=== PATIENT | female | born 1955 | race Caucasian/White ===

== ENCOUNTER 2025-05-18 17:25 | Emergency (ER) | payer MEDICARE, BC, SELFPAY ==
--- OUTSIDE RECORDS SUMMARY | 2025-05-18 17:27 | XMS_ITS | Clinical Summary ---
Author Organization [place] Address [address] [place] [address] Care Team Providers Care Asphalt Dauber Name Role Phone Nilay Ceron MD Unavailable [phone] Allergies No known active allergies Medications Multiple Vitamin (MULTIVITAMINS PO) Take by mouth. Active Melatonin 10 MG TABS tablet Take 10 mg by mouth nightly as needed for sleep Active ibuprofen (ADVIL/MOTRIN) 100 MG tablet Take 100 mg by mouth every 4 hours as needed Active valACYclovir (VALTREX) 1000 mg tabletIndications :Herpes zoster without complication Take 1 tablet (1,000 mg) by mouth 3 times daily for 3 days 9 tablet 0 Active Zinc Sulfate (ZINC 15 PO) Active Potassium (POTASSIMIN PO) Acti ve acetaminophen (TYLENOL) 325 MG tablet Take 325-650 mg by mouth every 6 hours as needed for mild pain Active alendronate (FOSAMAX) 70 MG tabletIndications :Age-related osteoporosis without current pathological fracture Take 1 tablet (70 mg) by mouth every 7 days Take 60 minutes before am meal with 8 oz. water. Remain upright for 30 minutes.Call clinic to schedule follow up appointment. 12 tablet 2 Active Active Problems Problem Noted Date Diagnosed Date Overweight (BMI 25.0-29.9) 07/22/2012 CARDIOVASCULAR SCREENING; LDL GOAL LESS THAN 160 06/05/2010 Resolved Problems Problem Noted Date Diagnosed Date Resolved Date Advanced directives, counseling/discussion 07/26/2011 03/12/2018 Overview (03/12/2018): Patient states has Advance Directive and will bring in a copy to clinic. 07/26/2011 Pain in joint, shoulder region 02/09/2009 05/04/2009 Adhesive capsulitis of shoulder 02/09/2009 05/04/2009 Abnormal Uterine Bleeding 07/24/2006 Immunizations Immunization Administration Dates Next Due HEPA 10/22/2006,05/02/2006 HepB 03/07/2007,10/22/2006,05/02/2006 Hepatitis A (VAQTA)(ADULT 19+) 10/22/2006,2005 Hepatitis B, Adult (Energix-B/Recombivax HB) 03/07/2007,10/22/2006,05/02/2006 Influenza (High Dose) Trival ent,PF (Fluzone) 07/02/2019 Influenza (IIV3) PF 07/22/2012,09/04/2011 Influenza Vaccine 18-64 (Flublok) 07/17/2018 Influenza Vaccine 65+ (Fluzone HD) 07/16/2020 Influenza Vaccine >6 months,quad, PF ,07/11/2016,07/08/2015,2013,06/17/2013 Pneumo Conj 13-V (2010&after) 07/02/2019 Pneumococcal 23 valent 07/16/2020 TD,PF 7+ (Tenivac) 10/04/2000 TDAP (Adacel,Boostrix) 07/16/2020 TDAP Vaccine (Adacel) 07/27/2010 Typhoid IM 05/02/2006 Zoster recombinant adjuvante d (Shingrix) 01/28/2019,07/17/2018 Zoster vaccine, live 09/02/2014,07/22/2012 Family History Medical History Relation Comments Cerebrovascular Disease Brother 3 Twin bro ther; 65 Cerebrovascular Disease Father of stroke at 93 Eye Disorder Father Glaucoma Hypertension Father at age 85; contr olled by medicine Prostate Cancer Father at age 80; surge ry; no re-occurance Thyroid Disease Sister 4 Relation Status Comments Brother 1 Alive Glucoma Brother 2 Alive twin Brother 3 Father (Age 94) stroke Mother (Age 80) smoking, lung problems Sister 1 Alive Sister 2 Alive Sister 3 Alive Sister 4 Son Alive Social History Tobacco Use Types Packs/Day Years Used Date Smoking Tobacco: Never Smokeless Tobacco: Never Tobacco Cessation:Counseling Given: Yes Alcohol Use Standard Drinks/Week Comments No 0 (1 standard drink = 0.6 oz pur e alcohol) PHQ-2 Answer Date Recorded PHQ-2 Score 0 08/31/2020 Adolescent Education Answer Date Record ed Getting School Help Needed Not on file 05/05 Comments No Sex and Gender Information Value Date Recorded Sex Assigned at Not on file Legal Sex Female 4:40 AM CONSTRUCTION CARPENTERS HELPER Gender Identity Not on file Sexual Orientation Not on file 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 Not on file Not on file Last Filed Vital Signs Vital Sign Reading Time Taken Comments Blood Pressure 136/77 07/16/2020 7:08 AM CONSTRUCTION CARPENTERS HELPER Pulse 44 07/16/2020 7:08 AM CONSTRUCTION CARPENTERS HELPER Temperature 36.5 C (97.7 F) 07/16/2020 7:08 AM CONSTRUCTION CARPENTERS HELPER Respiratory Rate 16 07/16/2020 7:08 AM CONSTRUCTION CARPENTERS HELPER Oxygen Saturation 97% 07/16/2020 7:08 AM CONSTRUCTION CARPENTERS HELPER Inhaled Oxygen Concentration - - Weight 68.3 kg (150 lb 9.6 oz) 07/16/2020 7:08 A M CONSTRUCTION CARPENTERS HELPER Height 152.4 cm (5') 07/16/2020 7:08 AM CONSTRUCTION CARPENTERS HELPER Body Mass Index 29.41 07/16/2020 7:08 AM CONSTRUCTION CARPENTERS HELPER Plan of Treatment Not on file Insurance [facility] MEDICARE ADVANTAGE Advance Directives For more information, please contact: [phone] Documents on File Type Date Recorded Patient Erp Programmer Expl anation Advance Directives and Living Will 03/08/2018 11:25 AM Health Care Directiv e 08/16/2016 Healthcare Agents on File Name Relationship Healthcare Agent Relationship Communication Troy Tucker Spouse Health Care Agent Sergio Moody Son First Alternate Health Care Agent Care Teams Asphalt Dauber Relationship Specialty Start Date End Date Nilay Ceron MD [address] [place] [address] [address] [place], [place] [id number] Surgery 12/26/17
--- OUTSIDE RECORDS SUMMARY | 2025-05-18 17:27 | XMS_ITS | Encounter Summary ---
Author Organization [place] Address [address] [facility] [place] [address] Care Team Providers Care Egg Breaker Name Role Phone Nilay Ceron MD Unavailable Say Tavarez PA-C Primary Care Provider [phone] Micaela Montiel MD Unavailable [phone] Say Tavarez PA-C Unavailable [phone] Donna Shankar PA-C Unavailable Donna Shankar PA-C Unavailable [phone] Say Tavarez PA-C Unavailable [phone] Encounter Details Date Type Department Care Team (Late st Contact Info) Description 11/24/2020 [facility] Medical Advice [facility] [address] [address] Micaela Montiel MD [address] [place] [address] Social History Tobacco Use Types Packs/Day Years Used Date Smoking Tobacco: Never Smokeless Tobacco: Never Alcohol Use Standard Drinks/Week Comments No 0 (1 standard drink = 0.6 oz pur e alcohol) PHQ-2 Answer Date Recorded PHQ-2 Score 0 08/31/2020 Comments No Sex and Gender Information Value Date Recorded Sex Assigned at Not on file Legal Sex Female 4:40 AM CRAB STEAMER Gender Identity Not on file Sexual Orientation Not on file 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 Not on file Not on file documented as of this encounter Plan of Treatment Not on file documented as of this encounter Visit Diagnoses Not on filedocumented in this encounter Care Teams Egg Breaker Relationship Specialty Start Date End Date Say Tavarez PA-C [address] [address] PCP - General Physician Community Relations Liaison 06/13/19 09/04/23 Nilay Ceron MD [address] [place] [address] MD Surgery 12/26/17 Micaela Montiel MD [address] [place] [phone] Assigned Endocrinology Provider 09/05/20 03/03/22 Say Tavarez PA-C [address] [address] Assigned PCP 08/15/20 01/20/22 Donna Shankar PA-C [address] [facility] [address] [place] [address] Assigned PCP 01/21/22 07/21/22 Donna Shankar PA-C [address] [facility] [address] [place] [address] Assigned PCP 09/30/22 03/09/23 Say Tavarez PA-C [address] [address] Assigned PCP 03/10/23 07/20/23 documented as of this encounter
--- OUTSIDE RECORDS SUMMARY | 2025-05-18 17:27 | XMS_ITS | Encounter Summary ---
Author Organization [place] Address [address] [facility] [place] [address] Care Team Providers Care Public Service Officer Name Role Phone Nilay Ceron MD Unavailable [phone] Say Tavarez PA-C Primary Care Provider Donna Shankar PA-C Unavailable [phone] Donna Shankar PA-C Unavailable [phone] Say Tavarez PA-C Unavailable [phone] Encounter Details Date Type Department Care Team (Late st Contact Info) Description 03/22/2022 [facility]ice [address], [address] [place] [address] Iliana Dunlap, VIVI Social History Tobacco Use Types Packs/Day Years Used Date Smoking Tobacco: Never Smokeless Tobacco: Never Alcohol Use Standard Drinks/Week Comments No 0 (1 standard drink = 0.6 oz pur e alcohol) PHQ-2 Answer Date Recorded PHQ-2 Score 0 08/31/2020 Comments No Sex and Gender Information Value Date Recorded Sex Assigned at Not on file Legal Sex Female 4:40 AM STOKER ERECTOR Gender Identity Not on file Sexual Orientation Not on file 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 Not on file Not on file documented as of this encounter Plan of Treatment Not on file documented as of this encounter Visit Diagnoses Not on filedocumented in this encounter Care Teams Public Service Officer Relationship Specialty Start Date End Date Say Tavarez PA-C [address] [facility] [address] [place] [address] PCP - General Physician Fine Unhairer 06/13/19 09/04/23 Nilay Ceron MD [address] [facility] [address] [place] [address] MD Surgery 12/26/17 Donna Shankar PA-C [facility] [employer] [address] Assigned PCP 01/21/22 07/21/22 Donna Shankar PA-C [facility] [employer] [address] [address] Assigned PCP 09/30/22 03/09/23 Say Tavarez PA-C [address] [address] Assigned PCP 03/10/23 07/20/23 documented as of this encounter
--- OUTSIDE RECORDS SUMMARY | 2025-05-18 17:27 | XMS_ITS | Encounter Summary ---
Author Organization [place] Address [address] [facility] [place] [address] Care Team Providers Care Seismograph Helper Name Role Phone Nilay Ceron MD Unavailable Say Tavarez PA-C Primary Care Provider [phone] Donna Shankar PA-C Unavailable [phone] Micaela Montiel MD Unavailable [phone] Say Tavarez PA-C Unavailable [phone] Donna Shankar PA-C Unavailable [phone] Donna Shankar PA-C Unavailable [phone] Say Tavarez PA-C Unavailable [phone] Encounter Details Date Type Department Care Team (Late st Contact Info) Description 08/12/2020 [facility] [place] Medical Advice [address] [address] Say Tavarez PA-C [address] [id number] Social History Tobacco Use Types Packs/Day Years Used Date Smoking Tobacco: Never Smokeless Tobacco: Never Alcohol Use Standard Drinks/Week Comments No 0 (1 standard drink = 0.6 oz pur e alcohol) PHQ-2 Answer Date Recorded PHQ-2 Score 0 08/14/2018 Comments No Sex and Gender Information Value Date Recorded Sex Assigned at Not on file Legal Sex Female 4:40 AM DISTRICT ADVISER Gender Identity Not on file Sexual Orientation Not on file 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 No / Unsure 08/10/2020 12:40 PM DISTRICT ADVISER documented as of this encounter Miscellaneous Notes * Telephone Encounter - Marii Valderrama RN - 08/13/2020 9:45 AM CST [facility] [employer] communication. Medical records number given to patient to retrieve DEXA scan results-images. Thanks! Marii Valderrama RN RICT ADVISER * Telephone Encounter - Marii Valderrama RN - 08/13/2020 8:43 AM CST [facility] [employer] communication. RE: DEXA results. Thanks! Marii Valderrama RN RICT ADVISER documented in this encounter Plan of Treatment Not on file documented as of this encounter Visit Diagnoses Not on filedocumented in this encounter Care Teams Seismograph Helper Relationship Specialty Start Date End Date Say Tavarez PA-C [address] [place] [address] PCP - General Physician General Manager Land Department 06/13/19 09/04/23 Nilay Ceron MD [address] [address] Surgery 12/26/17 Donna Shankar PA-C [address] [address] Assigned PCP 07/04/20 08/14/20 Micaela Montiel MD [address] [place] [phone] Assigned Endocrinology Provider 09/05/20 03/03/22 Say Tavarez PA-C [address] [address] Assigned PCP 08/15/20 01/20/22 Donna Shankar PA-C [address] [employer] [address] [address] [address] Assigned PCP 01/21/22 07/21/22 Donna Shankar PA-C [address] [employer] [address] [address] Assigned PCP 09/30/22 03/09/23 Say Tavarez PA-C [address] [address] Assigned PCP 03/10/23 07/20/23 documented as of this encounter
--- OUTSIDE RECORDS SUMMARY | 2025-05-18 17:28 | XMS_ITS | Encounter Summary ---
Author Organization [place] Address [address] [facility] [place] [address] Care Team Providers Care Mold Runner Name Role Phone Nilay Ceron MD Unavailable [phone] Say Tavarez-C Primary Care Provider [phone] Mona Sommer MD Unavailabl e Say Tavarez PA-C Unavailable [phone] Donna ShankarC Unavailable [phone] Micaela Montiel MD Unavailable [phone] Say TavarezC Unavailable [phone] Donna Shankar PA-C Unavailable [phone] Donna Shankar-C Unavailable [phone] Say Tavarez-Era Unavailable [phone] Encounter Details Date Type Department Care Team (Late st Contact Info) Description 09/02/2019 [facility] Medical Advice [address] [address] Lolis Verdugo, ABAD Social History Tobacco Use Types Packs/Day Years Used Date Smoking Tobacco: Never Smokeless Tobacco: Never Alcohol Use Standard Drinks/Week Comments No 0 (1 standard drink = 0.6 oz pur e alcohol) PHQ-2 Answer Date Recorded PHQ-2 Score 0 08/14/2018 Comments No Sex and Gender Information Value Date Recorded Sex Assigned at Not on file Legal Sex Female 4:40 AM RETREADER Gender Identity Not on file Sexual Orientation Not on file 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 Not on file Not on file documented as of this encounter Plan of Treatment Not on file documented as of this encounter Visit Diagnoses Not on filedocumented in this encounter Care Teams Mold Runner Relationship Specialty Start Date End Date Say Tavarez PA-C [address] [address] PCP - General Physician Prints And Drawings Curator 06/13/19 09/04/23 Nilay Ceron MD [address] [id number] Surgery 12/26/17 Mona Sommer MD [address] [place], [place] [id number] Assigned PCP 07/20/19 02/14/20 Say Tavarez PA-C [address] [address] Assigned PCP 02/15/20 07/03/20 Donna Shankar PA-C [address] [address] Assigned PCP 07/04/20 08/14/20 Micaela Montiel MD [address] [place] [phone] Assigned Endocrinology Provider 09/05/20 03/03/22 Say aTvarez PA-C [address] [address] Assigned PCP 08/15/20 01/20/22 Donna Shankar PA-C [facility] [address] [address] Assigned PCP 01/21/22 07/21/22 Donna Shankar PA-C [facility] [employer] [address] [address] Assigned PCP 09/30/22 03/09/23 Say Tavarez PA-C [address] [address] Assigned PCP 03/10/23 07/20/23 documented as of this encounter
--- OUTSIDE RECORDS SUMMARY | 2025-05-18 17:28 | XMS_ITS | Encounter Summary ---
Author Organization [place] Address [address] [place] [address] Care Team Providers Care Corrugator Operator Helper Name Role Phone Stalin Cortés MD Primary Care Pr ovider Unavailable Nilay Ceron MD Unavailable [phone] Stalin Cortés MD Unavailable Unavailable Mona Sommer MD Unavailabl e Stalin Cortés MD Unavailable Unavailable Mona Sommer MD Unavailabl e Stalin Cortés MD Unavailable Unavailable Say Tavarez-C Primary Care Provider [phone] Mona Sommer MD Unavailabl e Say Tavarez-C Unavailable [phone] Donna Shankar PA-C Unavailable [phone] Micaela Montiel MD Unavailable [phone] Say Tavarez-C Unavailable [phone] Donna Shankar PA-C Unavailable [phone] Donna Shankar PA-C Unavailable [phone] Say Tavarez PA-C Unavailable [phone] Reason for Visit * Reason Onset Date Comments thank you note 12/02/2018 Encounter Details Date Type Department Care Team (Late st Contact Info) Description 12/02/2018 [facility] [place] [address] [address] Stalin Cortés MD NO INFO AVAILABLE 01/03/2023 thank you note Social History Tobacco Use Types Packs/Day Years Used Date Smoking Tobacco: Never Smokeless Tobacco: Never Alcohol Use Standard Drinks/Week Comments No 0 (1 standard drink = 0.6 oz pur e alcohol) PHQ-2 Answer Date Recorded PHQ-2 Score 0 08/14/2018 Comments No Sex and Gender Information Value Date Recorded Sex Assigned at Not on file Legal Sex Female 4:40 AM INSPECTOR WATCH ASSEMBLY Gender Identity Not on file Sexual Orientation Not on file 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 Not on file Not on file documented as of this encounter Plan of Treatment Not on file documented as of this encounter Visit Diagnoses Not on filedocumented in this encounter Care Teams Corrugator Operator Helper Relationship Specialty Start Date End Date Stalin Cortés MD PCP - General Family Practice 08/14/14 06/12/19 Say Tavaerz PA-C [address] [place] [address] PCP - General Physician Office Machine Technician 06/13/19 09/04/23 Nilay Ceron MD [address] [place] [address] Surgery 12/26/17 Stalin Cortés MD NO INFO AVAILABLE 01/03/2023 Assigned PCP 07/11/15 01/29/19 Mona Sommer MD [address] [place] [address] Assigned PCP 06/23/18 02/22/19 Stalin Cortés MD NO INFO AVAILABLE 01/03/2023 Assigned PCP 02/23/19 03/01/19 Mona Sommer MD [address] [place] [address] Assigned PCP 03/02/19 03/08/19 Stalin Cortés MD NO INFO AVAILABLE 01/03/2023 Assigned PCP 03/09/19 07/19/19 Mona Sommer MD [address] [place] [address] Assigned PCP 07/20/19 02/14/20 Say Tavarez PA-C [address] [address] Assigned PCP 02/15/20 07/03/20 Donna Shankar PA-C [address] [place] [address] Assigned PCP 07/04/20 08/14/20 Micaela Montiel MD [address] [place] [phone] Assigned Endocrinology Provider 09/05/20 03/03/22 Say Tavarez PA-C [address] [address] Assigned PCP 08/15/20 01/20/22 Donna Shankar PA-C [address] [address] [address] Assigned PCP 01/21/22 07/21/22 Donna Shankar PA-C [address] [address] [address] Assigned PCP 09/30/22 03/09/23 Say Tavarez PA-C [address] [address] Assigned PCP 03/10/23 07/20/23 documented as of this encounter
--- OUTSIDE RECORDS SUMMARY | 2025-05-18 17:28 | XMS_ITS | Encounter Summary ---
Author Organization [place] Address [address] [place] [address] Care Team Providers Care Chute Builder Name Role Phone Stalin Cortés MD Primary Care Pr ovider Unavailable Nilay Ceron MD Unavailable [phone] Stalin Cortés MD Unavailable Unavailable Stalin Cortés MD Unavailable Unavailable Mona Sommer MD Unavailabl e Stalin Cortés MD Unavailable Unavailable Mona Sommer MD Unavailabl e Stalin Cortés MD Unavailable Unavailable Say Tavarez PA-C Primary Care Provider [phone] Mona Sommer MD Unavailabl e Say TavarezC Unavailable [phone] Donna Shankar PA-C Unavailable [phone] Micaela Montiel MD Unavailable [phone] Say Tavarez PA-C Unavailable [phone] Donna Shankar PA-C Unavailable [phone] Donna Shanakr PA-C Unavailable [phone] Say Tavarez PA-C Unavailable [phone] Encounter Details Date Type Department Care Team (Late st Contact Info) Description 01/11/2016 [facility] Medical Advice Initial Department Harleen Hart CMA Social History Tobacco Use Types Packs/Day Years Used Date Smoking Tobacco: Never Smokeless Tobacco: Never Alcohol Use Standard Drinks/Week Comments No 16.7 (1 standard drink = 0.6 oz pure alcohol) rarely Comments No Sex and Gender Information Value Date Recorded Sex Assigned at Not on file Legal Sex Female 4:40 AM RADIOLOGY MANAGER Gender Identity Not on file Sexual Orientation Not on file 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 Normal Results per patient. Harleen Hart CMA documented in this encounter Plan of Treatment Not on file documented as of this encounter Visit Diagnoses Not on filedocumented in this encounter Care Teams Chute Builder Relationship Specialty Start Date End Date Stalin Cortés MD PCP - General Family Practice 08/14/14 06/12/19 Stalin Cortés MD NO INFO AVAILABLE 01/03/2023 PCP - Assigned PCP 07/11/15 10/08/18 Say Tavarez PA-C [address] [place] [address] PCP - General Physician Precinct Police Sergeant 06/13/19 09/04/23 Nilay Ceron MD [address] [place] [address] Surgery 12/26/17 Stalin Cortés MD NO INFO AVAILABLE 01/03/2023 Assigned PCP 07/11/15 01/29/19 Mona Sommer MD [address] [place] [address] Assigned PCP 06/23/18 02/22/19 Stalin Cortés MD NO INFO AVAILABLE 01/03/2023 Assigned PCP 02/23/19 03/01/19 Mona Sommer MD [address] [place] [address] Assigned PCP 03/02/19 03/08/19 Stalin Cortés MD NO INFO AVAILABLE 01/03/2023 Assigned PCP 03/09/19 07/19/19 Mona Sommer MD [address] [place] [address] Assigned PCP 07/20/19 02/14/20 Say Tavarez PA-C [address] [address] Assigned PCP 02/15/20 07/03/20 Donna Shankar PA-C [address] [place] [address] Assigned PCP 07/04/20 08/14/20 Micaela Montiel MD [address] [place] [phone] Assigned Endocrinology Provider 09/05/20 03/03/22 Say Tavarez PA-C [address] [address] Assigned PCP 08/15/20 01/20/22 Donna Shankar PA-C [facility] [employer] [address] [address] Assigned PCP 01/21/22 07/21/22 Donna Shankar PA-C [facility] [employer] [address] [address] Assigned PCP 09/30/22 03/09/23 Say Tavarez PA-C [address] [address] Assigned PCP 03/10/23 07/20/23 documented as of this encounter
--- OUTSIDE RECORDS SUMMARY | 2025-05-18 17:28 | XMS_ITS | Clinical Summary ---
Author Organization [facility] Address [address] [place] [address] Care Team Providers Care Front Desk Lead Name Role Phone Varun [facility] Primary Care Provider Allergies No known active allergies Social History Tobacco Use Types Packs/Day Years Used Date Smoking Tobacco: Never Assessed Comments Unknown Sex and Gender Information Value Date Recorded Sex Assigned at Not on file Legal Sex Female 6:33 AM GLUING MACHINE OPERATOR Gender Identity Not on file Sexual Orientation Not on file Last Filed Vital Signs Vital Sign Reading Time Taken Comments Blood Pressure 142/75 04/04/2017 9:19 PM CDT Pulse 56 04/04/2017 9:19 PM CDT Temperature 36.8 C (98.3 F) 04/04/2017 4:28 PM CDT Respiratory Rate 16 04/04/2017 9:19 PM CDT Oxygen Saturation 96% 04/04/2017 9:19 PM CDT Inhaled Oxygen Concentration - - Weight 62.6 kg (138 lb) 04/04/2017 4:28 PM CDT Height 152.4 cm (5') 04/04/2017 4:28 PM CDT Body Mass Index 26.95 04/04/2017 4:28 PM CDT Plan of Treatment Not on file Insurance [facility] [employer] Care Teams Front Desk Lead Relationship Specialty Start Date End Date Varun [facility] PCP - General 12/17/20
--- OUTSIDE RECORDS SUMMARY | 2025-05-18 17:28 | XMS_ITS | Encounter Summary ---
Author Organization [place] Address [address] [place] [address] Care Team Providers Care Enologist Name Role Phone Stalin Cortés MD Primary Care Pr ovider Unavailable Nilay Ceron MD Unavailable [phone] Stalin Cortés MD Unavailable Unavailable Stalin Cortés MD Unavailable Unavailable Mona Sommer MD Unavailabl e Stalin Cortés MD Unavailable Unavailable Mona Sommer MD Unavailabl e Stalin Cortés MD Unavailable Unavailable Say Tavarez PA-C Primary Care Provider [phone] Mona Sommer MD Unavailabl e Say TavarezC Unavailable [phone] Donna Shankar PA-C Unavailable [phone] Micaela Montiel MD Unavailable [phone] Say Tavarez PA-C Unavailable [phone] Donna Shankar PA-C Unavailable [phone] Donna Shankar PA-C Unavailable [phone] Say Tavarez PA-C Unavailable [phone] Reason for Visit * Reason Onset Date Comments Labs Only 05/14/2017 urine protein co llection Encounter Details Date Type Department Care Team (Late st Contact Info) Description 05/14/2017 [facility] [address] [phone] Stalin Cortés MD NO INFO AVAILABLE 01/03/2023 Labs Only (urine protein collection ) Social History Tobacco Use Types Packs/Day Years Used Date Smoking Tobacco: Never Smokeless Tobacco: Never Alcohol Use Standard Drinks/Week Comments No 0 (1 standard drink = 0.6 oz pur e alcohol) rarely Comments No Sex and Gender Information Value Date Recorded Sex Assigned at Not on file 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 Rationale? 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 06/13/19 09/04/23 Nilay Ceron MD [address] [place] [address] Surgery 12/26/17 Stalin Cortés MD NO INFO AVAILABLE 01/03/2023 Assigned PCP 07/11/15 01/29/19 Mona Sommer MD [address] [place] [address] Assigned PCP 06/23/18 02/22/19 Stalin Cortés MD NO INFO AVAILABLE 01/03/2023 Assigned PCP 02/23/19 03/01/19 Mona Sommer MD [address] [place] [address] Assigned PCP 03/02/19 03/08/19 Stalin Cortés MD NO INFO AVAILABLE 01/03/2023 Assigned PCP 03/09/19 07/19/19 Mona Sommer MD [address] [place] [address] Assigned PCP 07/20/19 02/14/20 Say Tavarez PA-C [address] [address] Assigned PCP 02/15/20 07/03/20 Donna Shankar PA-C [address] [address] Assigned PCP 07/04/20 08/14/20 Micaela Montiel MD [address] [place] [phone] Assigned Endocrinology Provider 09/05/20 03/03/22 Say Tavarez PA-C [address] [address] Assigned PCP 08/15/20 01/20/22 Donna Shankar PA-C [address] [address] Assigned PCP 01/21/22 07/21/22 Donna Shankar PA-C [facility] [address] Assigned PCP 09/30/22 03/09/23 Say Tavarez PA-C [address] [address] Assigned PCP 03/10/23 07/20/23 documented as of this encounter
--- OUTSIDE RECORDS SUMMARY | 2025-05-18 17:28 | XMS_ITS | Encounter Summary ---
Author Organization [place] Address [address] [place] [address] Care Team Providers Care In Classroom Tutor Name Role Phone Stalin Cortés MD Primary Care Pr ovider Unavailable Nilay Ceron MD Unavailable [phone] Stalin Cortés MD Unavailable Unavailable Stalin Cortés MD Unavailable Unavailable Mona Sommer MD Unavailabl e Stalin Cortés MD Unavailable Unavailable Mona Sommer MD Unavailabl e Stalin Cortés MD Unavailable Unavailable Say Tavarez PA-C Primary Care Provider [phone] Mona Sommer MD Unavailabl e Say TavarezC Unavailable [phone] Donna Shankar PA-C Unavailable [phone] Micaela Montiel MD Unavailable [phone] Say Tavarez PA-C Unavailable [phone] Donna Shankar PA-C Unavailable [phone] Donna Shankar PA-C Unavailable [phone] Say Tavarez PA-C Unavailable [phone] Encounter Details Date Type Department Care Team (Late st Contact Info) Description 11/08/2015 [facility] [address] [phone] Rajesh Wilcox, MANAGER [employer] Social History Tobacco Use Types Packs/Day Years Used Date Smoking Tobacco: Never Smokeless Tobacco: Never Alcohol Use Standard Drinks/Week Comments No 16.7 (1 standard drink = 0.6 oz pure alcohol) rarely Comments No Sex and Gender Information Value Date Recorded Sex Assigned at Not on file 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 Gender Identity Not on file Sexual Orientation Not on file 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 Not on file Not on file documented as of this encounter Plan of Treatment Not on file documented as of this encounter Visit Diagnoses Not on filedocumented in this encounter Care Teams In Classroom Tutor Relationship Specialty Start Date End Date Stalin Cortés MD PCP - General Family Practice 08/14/14 06/12/19 Stalin Cortés MD NO INFO AVAILABLE 01/03/2023 PCP - Assigned PCP 07/11/15 10/08/18 Say Tavarez PA-C [address] [place] [address] PCP - General Physician Mangle Tender Cloth 06/13/19 09/04/23 Nilay Ceron MD [address] [address] Surgery 12/26/17 Stalin Cortés MD NO INFO AVAILABLE 01/03/2023 Assigned PCP 07/11/15 01/29/19 Mona Sommer MD [address] [place] [address] Assigned PCP 06/23/18 02/22/19 Stalin Cortés MD NO INFO AVAILABLE 01/03/2023 Assigned PCP 02/23/19 03/01/19 Mona Sommer MD [address] [place] [address] Assigned PCP 03/02/19 03/08/19 Stalin Cortés MD NO INFO AVAILABLE 01/03/2023 Assigned PCP 03/09/19 07/19/19 [place] [address] [place] [address] Assigned PCP 07/20/19 02/14/20 Say Tavarez PA-C [address] [address] Assigned PCP 02/15/20 07/03/20 Donna Shankar PA-C [address] [place] [address] Assigned PCP 07/04/20 08/14/20 Micaela Montiel MD [address] [place] [phone] Assigned Endocrinology Provider 09/05/20 03/03/22 Say Tavarez PA-C [employer] [address] [address] Assigned PCP 08/15/20 01/20/22 Donna Shankar PA-C [address] [address] Assigned PCP 01/21/22 07/21/22 Donna Shankar PA-C [address] [employer] [address] [address] Assigned PCP 09/30/22 03/09/23 Say Tavarez PA-C [facility] [address] [address] Assigned PCP 03/10/23 07/20/23 documented as of this encounter
--- OUTSIDE RECORDS SUMMARY | 2025-05-18 17:28 | XMS_ITS | Clinical Summary ---
Author Organization [facility] Address [address], [address] [place] [address] Care Team Providers Care Svp Business Development Name Role Phone Judson Benjamin ROBERTSON Primary Care Provider [phone] Allergies No known active allergies Medications Potassium 75 MG TABS Take by mouth Active acetaminophen (TYLENOL) 325 mg tablet Take 1-2 tablets by mouth every 6 hours as needed Active Multiple Vitamin (MULTIVITAMINS PO) Take by mouth Active Zinc Sulfate (ZINC 15 PO) Take by mouth Active Melatonin 10 MG TABS Take 10 mg by mouth nightly as needed Active ibuprofen (ADVIL;MOTRIN) 200 MG tablet Take 1 tablet by mouth every 6 hours as needed for Pain 20 tablet 05/30/2023 Active traZODone (DESYREL) 50 MG tabletIndication s:Insomnia, unspecified type TAKE 1 TABLET BY MOUTH EVERY DAY AT NIGHT 90 tablet 03/08/2025 Active Active Problems Problem Noted Date Diagnosed Date 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 Pelvic pain in female 05/08/2023 Ovarian mass, right 05/07/2023 Intermittent left lower quadrant abdominal pain 05/07/2023 Pelvic mass 05/07/2023 Resolved Problems Problem Noted Date Diagnosed Date Resolved Date Screen for colon cancer 05/17/202306/06 Chronic constipation 05/07/2023 024 Major depressive disorder, recurrent, mild 04/30/2023 05/19/2024 Major depressive disorder, r ecurrent, moderate 04/30/2023 05/19/2024 Major depressive disorder, r ecurrent, unspecified 04/30/2023 05/19/2024 Encounters Date Type Department Care Team Description 03/08/2025 Refill [facility] [place] [facility] [address] [place] [phone] Benjamin Roper, Medication Refill from Last 3 Months Immunizations Immunization Administration Dates Next Due COVID-19, Inactive, PFIZER P URPLE top, DILUTE for use, (age 12 y+) 06/15/2021,11/27/2020,11/10/2020 Hepatitis A Vaccine 10/22/2006,05/02/2006 Influenza Virus Vaccine 07/20/2017,07/11,07/08/2015,06/18,06/17/2013,07/22/2012,09/04/2011 Influenza, FLUAD, (age 65 y+ ), IM, Quadv, 0.5mL 10/01/2023,08/14/2022 Influenza, FLUAD, (age 65 y+ ), IM, Trivalent PF, 0.5mL 05/29/2024 Influenza, FLUBLOK, (age 18 y+), Quadv PF, 0.5mL 07/17/2018 Influenza, FLUZONE High Dose (age 65 y+), IM, Quadv, 0.7mL 07/16/2020 Influenza, FLUZONE High Dose , (age 65 y+), IM, Trivalent PF, 0.5mL 07/02/2019 Pneumococcal, PCV-13, PREVNA R 13, (age 6w+), IM, 0.5mL 07/02/2019 RSV, AREXVY, (age 60y+), PF, IM, 0.5mL 4 TD 5LF, TENIVAC, (age 7y+), IM, 0.5mL 10/04/2000 TDaP, ADACEL (age 10y-64y), BOOSTRIX (age 10y+), IM, 0.5mL 07/16/2020,07/27/2010 Typhoid Vi capsular polysacc haride (Typhim ) 05/02/2006 Zoster Live (Zostavax) 09/02/2014,07/22/2012 Zoster Recombinant (Shingrix) 01/28/2019, 018 Family History Medical History Relation Name Comments No Known Problems Brother 1 Cancer Brother 2 prostate Lung Disease Brother 2 oxygen dependen ce Cancer Father leukemia Deep Vein Thrombosis Father Pulmonary Embolism Father COPD Mother No Known Problems Sister 1 No Known Problems Sister 2 COPD Sister 3 Breast Cancer Neg Hx Relation Name Status Comments Brother 1 Alive Brother 2 Alive Father Maternal Grandfather Maternal Grandmother Mother Paternal Grandfather Paternal Grandmother Sister 1 Alive Sister 2 Alive Sister 3 Alive Son Alive Social History Tobacco Use Types Packs/Day Years Used Date Smoking Tobacco: Never Smokeless Tobacco: Never Tobacco Cessation:Counseling Given: Not Answered Alcohol Use Standard Drinks/Week Comments Not Currently 0 (1 standard drink = 0.6 oz pur e alcohol) AUDIT-C Answer Date Recorded Q1: How often do you have a drink containing alcohol? Monthly or less 09/15/2023 Q2: How many drinks containi ng alcohol do you have on a typical day when you are drinking? Patient does not drink Q3: How often do you have si x or more drinks on one occasion? Never 09/15/2023 Overall Financial Resource Strain (CARDIA) Answe r Date Recorded How hard is it for you to pa y for the very basics like food, housing, medical care, and heating? Not hard at all 05/26/2024 PHQ-2 Answer Date Recorded PHQ-9 Total Score 0 09/15/2023 Exercise Vital Sign Answer Date Recorde d On average, how many days pe r week do you engage in moderate to strenuous exercise (like a brisk walk)? 0 days 09/15/2023 On average, how many minutes do you engage in exercise at this level? 0 min 09/15/2023 Hunger Vital Sign Answer Date Recorded Within the past 12 months, y ou worried that your food would run out before you got the money to buy more. Never true 05/26/20 24 Within the past 12 months, t he food you bought just didn't last and you didn't have money to get more. Never true 05/26/2024 PRAPARE - Transportation Answer Date Re corded Lack of Transportation (Medical) Not on file 05/26/2024 In the past 12 months, has l ack of transportation kept you from meetings, work, or from getting things needed for daily living? No 05/26/2024 Housing Stability Vital Sign Answer Maxx e Recorded Unable to Pay for Housing in the Last Year Not o n file 04/24/2023 Number of Places Lived in the Last Year Not on f ile 04/24/2023 In the last 12 months, was t here a time when you did not have a steady place to sleep or slept in a nursing home (including now)? No 04/24/2023 Housing Stability Vital Sign Answer Maxx e Recorded Unable to Pay for Housing in the Last Year Not o n file 05/26/2024 Number of Times Moved in the Last Year Not on fi le 05/26/2024 At any time in the past 12 m onths, were you homeless or living in a nursing home (including now)? No 05/26/2024 Food Insecurity Answer Date Recorded Within the past 12 months, y ou worried that your food would run out before you got the money to buy more. 1 05/26/2024 Within the past 12 months, t he food you bought just didn't last and you didn't have money to get more. 1 05/26/2024 Interpersonal Safety Domain Source: IP Abuse Scr eening Answer Date Recorded Read-Only, Retired: Physical Abuse Denies 05/29/2023 Read-Only, Retired: Verbal Abuse Denies 05/29/2023 Read-Only, Retired: Emotional abuse Denies 05/29/2023 Read-Only, Retired: Financial Abuse Denies 05/29/2023 Read-Only, Retired: Sexual abuse Denies 05/29/2023 Comments No Sex and Gender Information Value Date Recorded Sex Assigned at Female 05/29/2023 10:33 AM EDT Legal Sex Female 8:52 PM EST Gender Identity Female 05/29/2023 10:33 AM EDT Sexual Orientation Straight 05/29/2023 10 :33 AM EDT Last Filed Vital Signs Vital Sign Reading Time Taken Comments Blood Pressure 128/76 05/29/2024 8:36 AM EDT Pulse 63 05/29/2024 8:36 AM EDT Temperature 36.7 C (98.1 F) 05/29/2024 8:36 AM EDT Respiratory Rate 12 06/06/2023 9:30 AM EDT Oxygen Saturation 99% 05/29/2024 8:36 AM EDT Inhaled Oxygen Concentration - - Weight 73.2 kg (161 lb 6.4 oz) 05/29/2024 8:36 A M EDT Height 152.4 cm (5') 05/29/2024 8:36 AM EDT Body Mass Index 31.52 05/29/2024 8:36 AM EDT Plan of Treatment Upcoming Encounters Date Type Department Care Team (Late st Contact Info) Description 05/28/2025 7:45 AM EDT Lab [address] [phone] fasting 06/05/2025 10:40 AM EDT Office Visit [address] [phone] Anjelica Hidalgo PA-C [address] [place] [address] awv 08/20/2025 2:40 PM EST Office Visit [address] [phone] Pennie Houston MD [address] [place] [address] new pt; [facility] Due Date Last Done Comments FIT/FOBT: Average risk 1999 Fecal-DNA (Cologuard): Average risk 1999 Sigmoidoscopy/CT colonography 1999 Depression Screen 09/15/2024 09/15/2023 Annual Wellness Visit (Medicare) 09/18/2024 09/18/2023, 08/14/2022 Flu vaccine (#1) 03/06/2025 05/29/2024, , 08/14/2022, Additional history exists COVID-19 Vaccine ( season) 2025 06/15/2021, 11/27/2020, 11/10/2020 Breast cancer screen 12/11/2025 12/12/2023, 10/04/2021, 08/04/2020, Additional history exists Lipids 05/22/2029 05/22/2024, 02/01/2024, 08/04/2022, Additional history exists Colonoscopy 05/10/2033 05/10/2023 Colorectal Cancer Screen 05/10/2033 DTaP/Tdap/Td vaccine (4 - Td or Tdap) 07/23/2034 07/23/2024, 07/16/2020, 07/27/2010, Additional history exists Hepatitis A vaccine Aged Out 10/22/2006, 6 No longer eligible based on patient's age to complete this topic Shingles vaccine Completed 01/28/2019, 07/2018, 09/02/2014, Additional history exists Pneumococcal 50+ years Vaccine Completed 07/16/2020, 07/02/2019 Hepatitis C screen Completed 09/11/2023 Depression Monitoring Discontinued 09/15/2023 Respiratory Syncytial Virus (RSV) or age 60 yrs+ Completed 10/01/2023 DEXA (modify frequency per FRAX score) Completed 06/05/2024, 08/04/2020 Hepatitis B vaccine Aged Out No longe r eligible based on patient's age to complete this topic Hib vaccine Aged Out No longer eligi ble based on patient's age to complete this topic Meningococcal (ACWY) vaccine Aged Out No longer eligible based on patient's age to complete this topic Meningococcal B vaccine Aged Out No l onger eligible based on patient's age to complete this topic Polio vaccine Aged Out No longer elig ible based on patient's age to complete this topic Procedures Procedure Name Priority Date/Time Associated Diagnosis Comments DEXA BONE DENSITY AXIAL SKELETON Routine 06/05/2024 3:56 PM EDT Age-related osteoporosis without current pathological fracture LIPID PANEL Routine 05/22/2024 10:12 AM EDT Mixed hyperlipidemia MALIKA DIGITAL SCREEN W OR WO CAD BILATERAL Routine 12/12/2023 11:18 AM EDT Screening mammogram for breast cancer HEPATITIS C ANTIBODY Routine 09/11/2023 8:23 AM EST Encounter for hepatitis C screening test for low risk patient from Last 3 Months or Most Recently Relevant to Health Maintenance Results * DEXA BONE DENSITY AXIAL SKELETON (06/05/2024 3:56 PM EDT) Anatomical Region Laterality Modality Head, C-spine, T-spine, L-spine, Chest Bone Density 06/07/2024 9:42 AM EDT Impressions 06/07/2024 9:46 AM EDT Bone density is considered osteopenia. FRAX: World Health Organization meta-analysis fracture risk calculator (FRAX) analysis was performed for 10 year fracture risk probability assessment. 10 year probability of major osteoporotic fracture: 10% 10 year probability of hip fracture: 1.6% - The National Osteoporosis Foundation recommends that medical therapy be considered in postmenopausal women and men age 50 years and older with a: a. Hip or vertebral fracture, b. T-score <= -2.5 in the spine or hip (osteoporotic), or c. T-score between -1.0 and -2.5 (low bone mass, osteopenic), and FRAX => 3% for hip fracture or => 20% for major osteoporotic fracture. Electronically signed by Amol Loya 06/07/2024 9:46 AM EDT STUDY: DUAL ENERGY X-RAY ABSORPTIOMETRY / DEXA REASON FOR EXAM: Female, 69 years old. Postmenopausal TECHNIQUE: Bone Mineral Density (BMD) measurements of lumbar spine and bilateral hips were obtained. COMPARISON: No prior comparisons are available. FINDINGS: Lumbar Spine (L1-L4): 0.751 g/cm2 / T-score -2.7/ Z-score -0.6 Left Femoral Neck: 0.655 g/cm2 / T-score -1.7/ Z-score 0.1 Right Femoral Neck: 0.712 g/cm2 / T-score 1.2/ Z-score 0.6 Left Femur Total: 0.757 g/cm2 / T-score -1.5/ Z-score -0 Right Femur Total: 0.756 g/cm2 / T-score 1.5/ Z-score 0 Total Mean Femur: 0.757 g/cm2 / T-score -1.5/ Z-score -0 Procedure Note Amol Gabriel MD - 06/07/2024 STUDY: DUAL ENERGY X-RAY ABSORPTIOMETRY / DEXA REASON FOR EXAM: Female, 69 years old. Postmenopausal TECHNIQUE: Bone Mineral Density (BMD) measurements of lumbar spine and bilateral hips were obtained. COMPARISON: No prior comparisons are available. FINDINGS: Lumbar Spine (L1-L4): 0.751 g/cm2 / T-score -2.7/ Z-score -0.6 Left Femoral Neck: 0.655 g/cm2 / T-score -1.7/ Z-score 0.1 Right Femoral Neck: 0.712 g/cm2 / T-score 1.2/ Z-score 0.6 Left Femur Total: 0.757 g/cm2 / T-score -1.5/ Z-score -0 Right Femur Total: 0.756 g/cm2 / T-score 1.5/ Z-score 0 Total Mean Femur: 0.757 g/cm2 / T-score -1.5/ Z-score -0 IMPRESSION: Bone density is considered osteopenia. FRAX: World Health Organization meta-analysis fracture risk calculator (FRAX)analysis was performed for 10 year fracture risk probability assessment. 10 year probability of major osteoporotic fracture: 10% 10 year probability of hip fracture: 1.6% - The National Osteoporosis Foundation recommends that medical therapy be considered in postmenopausal women and men age 50 years and older witha: a. Hip or vertebral fracture, b. T-score <= -2.5 in the spine or hip (osteoporotic), or c. T-score between -1.0 and -2.5 (low bone mass, osteopenic), and FRAX =>3% for hip fracture or => 20% for major osteoporotic fracture. Electronically signed by Amol Gabriel Benjamin Roper DO IMG DEXA ORDERABLES Final Resul t * (ABNORMAL) Lipid Panel (05/22/2024 10:12 AM EDT) Cholesterol, Total 223(H) 0 - 200 MG/DL [facility] Comment: Borderline High: 200-239 mg/dL High: Greater than or equal to 240 mg/dL Triglycerides 55 0 - 150 MG/DL [facility] Comment: Borderline High: 150-199 mg/dL, High: 200-499 mg/dL Very High: Greater than or equal to 500 mg/dL HDL 69(H) 40 - 60 MG/DL [facility] LDL Cholesterol 143(H) 0 - 100 MG/DL [facility] Comment: Near Optimal: 100-129 mg/dL Borderline High: 130-159, High: 160-189 mg/dL Very High: Greater than or equal to 190 mg/dL VLDL Cholesterol Calculated 11 6 - 23 MG/DL [facility] Chol/HDL Ratio 3.2 0.0 - 5.0 [facility] Blood PLASMA SPECIMEN / Unknown 05/22/2024 10:12 AM EDT 05/22/2024 6:58 PM EDT Benjamin Roper DO CHEMISTRY ORDERABLES Final Resu lt [facility] Dr. Dusty Baeza, Product Mgr Dr. Sailaja Lucas, POC Product Mgr [place] [id number] [place] [address] [place] [address] * MALIKA DIGITAL SCREEN W OR WO CAD BILATERAL (12/12/2023 11:18 AM EDT) Anatomical Region Laterality Modality Breast Bilateral Mammography 12/13/2023 11:4 8 AM EDT Impressions 12/13/2023 11:53 AM EDT Stable mammogram without suspicious findings. RECOMMENDATION: Screening mammogram in one year. Preferably with tomosynthesis. BI-RADS Assessment Category 2: Benign finding. (#BRad2) Annual mammograms are recommended for all women over the age of 40. A reminder letter will be sent to the patient. For high-risk patients, the [employer] recommends considering additional screening with breast MRI. For patients with heterogeneously dense or extremely dense breast tissue and/or considered intermediate-risk, continue/consider annual 3D tomosynthesis mammography. Narrative 12/13/2023 11:53 AM EDT BILATERAL DIGITAL SCREENING MAMMOGRAM INDICATION: 68-year-old presents for asymptomatic screening mammography. COMPARISON: 10/04/2021 through 02/02/2015 ADDITIONAL HISTORY: Preliminary estimated lifetime risk of breast cancer for this patient is calculated to be 4.2% based on the Tyrer-Cuzick version 8 model. This is considered low risk (<5%). No personal or family history of breast cancer. History of right breast biopsy and bilateral reduction mammoplasty. TECHNIQUE: Bilateral digital mammography was performed, and is interpreted in conjunction with a computer assisted detection (CAD) system. BREAST DENSITY:The breasts are heterogeneously dense, which may obscure small masses. (#BDC) FINDINGS: There are stable parenchymal changes consistent with reduction mammoplasty. There are a few calcifications which demonstrate long-term stability. No new or suspicious mass, indeterminant calcification or unexpected distortion. There are no significant interval findings. Morenita Grimes STATION DETECTIVE - ACUTE CARE SURGEON IMG MAMMOGRAPHY ORDERAB LES Final Result * Hepatitis C Antibody (09/11/2023 8:23 AM EST) Hepatitis C Ab NONREACTIVE NONREACTIVE [facility] Blood SERUM SPECIMEN / Unknown 09/11/2023 8:23 AM EST 09/11/2023 6:21 PM EST Benajmin Roper DO IMMUNOLOGY ORDERABLES Final Res ult [facility] Dr. Dusty Baeza, Product Mgr Dr. Sailaja Lucas, POC Product Mgr [address] [facility] [place] [address] from Last 3 Months or Most Recently Relevant to Health Maintenance Insurance MEDICARE Member Subscriber Plan / Payer (Ef fective 2019-Present) Name:Shandra Tucker Relation to Subscriber:Self Name:Shandra Tucker Payer ID:Not on file Group ID:Not on file Type:Not on file Address: [address] MEDICARE Member Subscriber Plan / Payer (Ef fective 2019-Present) Name:Shandra Tucker Relation to Subscriber:Self Name:Shandra Tucker Payer ID:Not on file Group ID:Not on file Type:Not on file Address: [address] Advance Directives Documents on File Type Date Recorded Patient Registered Nurse Maternity Expl anation ACP-Advance Directive 09/25/2024 9:12 AM H [email or web address] (1).pdf * Full Code (Latest Code Status on File) Date Activated Date Inactivated Comments 05/29/2023 4:26 PM 05/30/2023 5:55 PM * Full Code Date Activated Date Inactivated Comments 05/29/2023 10:47 AM 05/29/2023 4:26 PM * Full Code Date Activated Date Inactivated Comments 05/10/2023 8:32 AM 05/10/2023 12:43 PM Healthcare Agents on File Name Relationship Healthcare Agent Relationship Communication Yohannes Tucker Spouse Primary Decision Maker Sergio Saul Secondary Decision Maker Care Teams Svp Business Development Relationship Specialty Start Date End Date Benjamin Roper DO [address] [place] [address] Dr[address] Torrez [address] [place] [address] PCP - General Internal Medicine 06/05/24
--- OUTSIDE RECORDS SUMMARY | 2025-05-18 17:28 | XMS_ITS | Encounter Summary ---
Author Organization [facility] Address [address] [place] [address] Care Team Providers Care Tin Tie Machine Operator Automatic Name Role Phone Stalin Cortés MD Primary Care Pr ovider Unavailable Nilay Ceron MD Unavailable [phone] Stalin Cortés MD Unavailable Unavailable Stalin Cortés MD Unavailable Unavailable Mona Sommer MD Unavailabl e Stalin Cortés MD Unavailable Unavailable Mona Sommer MD Unavailabl e Stalin Cortés MD Unavailable Unavailable Say Tavarez PA-C Primary Care Provider [phone] Mona Sommer MD Unavailabl e Say TavarezC Unavailable [phone] Donna Shankar PA-C Unavailable [phone] Micaela Montiel MD Unavailable [phone] Say Tavarez PA-C Unavailable [phone] Donna Shankar PA-C Unavailable [phone] Donna Shankar PA-C Unavailable [phone] Say Tavarez PA-C Unavailable [phone] Encounter Details Date Type Department Care Team (Late st Contact Info) Description 07/25/2018 MyC Medical Advice [address] [phone] Tabatha Webb Social History Tobacco Use Types Packs/Day Years Used Date Smoking Tobacco: Never Smokeless Tobacco: Never Alcohol Use Standard Drinks/Week Comments No 0 (1 standard drink = 0.6 oz pur e alcohol) Comments No Sex and Gender Information Value Date Recorded Sex Assigned at Not on file 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 Gender Identity Not on file Sexual Orientation Not on file 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 Not on file Not on file documented as of this encounter Plan of Treatment Not on file documented as of this encounter Visit Diagnoses Not on filedocumented in this encounter Care Teams Tin Tie Machine Operator Automatic Relationship Specialty Start Date End Date Stalin Cortés MD PCP - General Family Practice 08/14/14 06/12/19 Stalin Cortés MD NO INFO AVAILABLE 01/03/2023 PCP - Assigned PCP 07/11/15 10/08/18 Say Tavarez PA-C [address] [place] [address] PCP - General Physician Brand Specialist 06/13/19 09/04/23 Nilay Ceron MD [address] [facility] [address] [place] [address] Surgery 12/26/17 Stalin Cortés MD NO INFO AVAILABLE 01/03/2023 Assigned PCP 07/11/15 01/29/19 Mona Sommer MD [address] [place] [address] Assigned PCP 06/23/18 02/22/19 Stalin Cortés MD NO INFO AVAILABLE 01/03/2023 Assigned PCP 02/23/19 03/01/19 [place] [address] [place] [address] Assigned PCP 03/02/19 03/08/19 Stalin Cortés MD NO INFO AVAILABLE 01/03/2023 Assigned PCP 03/09/19 07/19/19 [place] [address] [place] [address] Assigned PCP 07/20/19 02/14/20 Say Tavarez PA-C [address] [address] Assigned PCP 02/15/20 07/03/20 Donna Shankar PA-C [address] [place] [address] Assigned PCP 07/04/20 08/14/20 Micaela Montiel MD [address] [place] [phone] Assigned Endocrinology Provider 09/05/20 03/03/22 Say Tavarez PA-C [address] [address] Assigned PCP 08/15/20 01/20/22 Donna Shankar PA-C [address] [address] Assigned PCP 01/21/22 07/21/22 Donna Shankar PA-C [address] [address] Assigned PCP 09/30/22 03/09/23 Say Tavarez PA-C [address] [address] Assigned PCP 03/10/23 07/20/23 documented as of this encounter
--- OUTSIDE RECORDS SUMMARY | 2025-05-18 17:28 | XMS_ITS | Encounter Summary ---
Author Organization [facility] Address [address] [facility] [place] [address] Care Team Providers Care Desizing Machine Operator Name Role Phone Stalin Cortés MD Primary Care Pr ovider Unavailable Nilay Ceron MD Unavailable [phone] Stalin Cortés MD Unavailable Unavailable Stalin Cortés MD Unavailable Unavailable Mona Sommer MD Unavailabl e Stalin Cortés MD Unavailable Unavailable Mona Sommer MD Unavailabl e Stalin Cortés MD Unavailable Unavailable Say Tavarez PA-C Primary Care Provider [phone] Mona Sommer MD Unavailabl e Say TavarezC Unavailable [phone] Donna Shankar PA-C Unavailable [phone] Micaela Montiel MD Unavailable [phone] Say Tavarez PA-C Unavailable [phone] Donna Shankar PA-C Unavailable [phone] Donna Shankar PA-C Unavailable [phone] Say Tavarez PA-C Unavailable [phone] Encounter Details Date Type Department Care Team (Late st Contact Info) Description 03/14/2018 MyC Medical Advice Initial Department Joon Humphrey Social History Tobacco Use Types Packs/Day Years Used Date Smoking Tobacco: Never Smokeless Tobacco: Never Alcohol Use Standard Drinks/Week Comments No 0 (1 standard drink = 0.6 oz pur e alcohol) Comments No Sex and Gender Information Value Date Recorded Sex Assigned at Not on file 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 Gender Identity Not on file Sexual Orientation Not on file 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 Not on file Not on file documented as of this encounter Plan of Treatment Not on file documented as of this encounter Visit Diagnoses Not on filedocumented in this encounter Care Teams Desizing Machine Operator Relationship Specialty Start Date End Date Stalin Cortés MD PCP - General Family Practice 08/14/14 06/12/19 Stalin Cortés MD NO INFO AVAILABLE 01/03/2023 PCP - Assigned PCP 07/11/15 10/08/18 Say Tavarez PA-C [address] [place] [address] PCP - General Physician Research Quality Assurance Specialist 06/13/19 09/04/23 Nilay Ceron MD [address] [place] [address] Surgery 12/26/17 Stalin Cortés MD NO INFO AVAILABLE 01/03/2023 Assigned PCP 07/11/15 01/29/19 Mona Sommer MD [address] [place] [address] Assigned PCP 06/23/18 02/22/19 Stalin Cortés MD NO INFO AVAILABLE 01/03/2023 Assigned PCP 02/23/19 03/01/19 Mona Sommer MD [address] [place] [address] Assigned PCP 03/02/19 03/08/19 Stalin Cortés MD NO INFO AVAILABLE 01/03/2023 Assigned PCP 03/09/19 07/19/19 Mona Sommer MD [address] [place] [address] Assigned PCP 07/20/19 02/14/20 Say Tavarez PA-C [address] [address] Assigned PCP 02/15/20 07/03/20 Donna Shankar PA-C [address] [address] Assigned PCP 07/04/20 08/14/20 Micaela Montiel MD [address] [place] [phone] Assigned Endocrinology Provider 09/05/20 03/03/22 Say Tavarez PA-C [address] [address] Assigned PCP 08/15/20 01/20/22 Donna Shankar PA-C [address] [employer] [address] [address] Assigned PCP 01/21/22 07/21/22 Donna Shankar PA-C [address] [employer] [address] [address] Assigned PCP 09/30/22 03/09/23 Say Tavarez PA-C [address] [address] Assigned PCP 03/10/23 07/20/23 documented as of this encounter
--- OUTSIDE RECORDS SUMMARY | 2025-05-18 17:28 | XMS_ITS | Encounter Summary ---
Author Organization [place] Address [address] [facility] [place] [address] Care Team Providers Care Remodeler Name Role Phone Norman Waldron MD Primary Care Provi becca Stalin Cortés MD Primary Care Pr ovider Unavailable Nilay Ceron MD Unavailable [phone] Stalin Cortés MD Unavailable Unavailable Stalin Cortés MD Unavailable Unavailable Mona Sommer MD Unavailabl e Stalin Cortés MD Unavailable Unavailable Mona Sommer MD Unavailabl e Stalin Cortés MD Unavailable Unavailable Say TavarezC Primary Care Provider [phone] Mona Sommer MD Unavailabl e Say TavarezC Unavailable [phone] Donna Shankar PA-C Unavailable [phone] Micaela Montiel MD Unavailable [phone] Say TavarezC Unavailable [phone] Donna Shankar PA-C Unavailable [phone] Donna Shankar PA-C Unavailable [phone] Say Tavarez PA-C Unavailable [phone] Encounter Details Date Type Department Care Team (Late st Contact Info) Description 07/13/2014 [facility] Medical Advice Initial Department Joon Humphrey Social History Tobacco Use Types Packs/Day Years Used Date Smoking Tobacco: Never Smokeless Tobacco: Never Alcohol Use Standard Drinks/Week Comments No 16.7 (1 standard drink = 0.6 oz pure alcohol) rarely Comments No Sex and Gender Information Value Date Recorded Sex Assigned at Not on file 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 Gender Identity Not on file Sexual Orientation Not on file 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 Not on file Not on file documented as of this encounter Plan of Treatment Not on file documented as of this encounter Visit Diagnoses Not on filedocumented in this encounter Care Teams Remodeler Relationship Specialty Start Date End Date Norman Waldron MD PCP - General Family Practice 07/17/11 08/13/14 Stalin Cortés MD PCP - General Family Practice 08/14/14 06/12/19 Stalin Cortés MD NO INFO AVAILABLE 01/03/2023 PCP - Assigned PCP 07/11/15 10/08/18 Say Tavarez PA-C [address] [place] [id number] PCP - General Physician Airport Guide 06/13/19 09/04/23 Nilay Ceron MD [address] [facility] [address] [place] [address] Surgery 12/26/17 Stalin Cortés MD NO INFO AVAILABLE 01/03/2023 Assigned PCP 07/11/15 01/29/19 Mona Sommer MD [address] [place] [address] Assigned PCP 06/23/18 02/22/19 Stalin Cortés MD NO INFO AVAILABLE 01/03/2023 Assigned PCP 02/23/19 03/01/19 Mona Sommer MD [address] [place] [id number] Assigned PCP 03/02/19 03/08/19 Stalin Cortés MD NO INFO AVAILABLE 01/03/2023 Assigned PCP 03/09/19 07/19/19 [place] [address] [place] [id number] Assigned PCP 07/20/19 02/14/20 Say Tavarez PA-C [address] [id number] Assigned PCP 02/15/20 07/03/20 Donna Shankar PA-C [address] [place] [address] [id number] Assigned PCP 07/04/20 08/14/20 Micaela Montiel MD [address] [place] [phone] Assigned Endocrinology Provider 09/05/20 03/03/22 Say Tavarez PA-C [address] [address] Assigned PCP 08/15/20 01/20/22 Donna Shankar PA-C [facility] [email or web address] [address] [address] Assigned PCP 01/21/22 07/21/22 Donna Shankar PA-C [facility] [email or web address] [address] [address] Assigned PCP 09/30/22 03/09/23 Say Tavarez PA-C [address] [address] Assigned PCP 03/10/23 07/20/23 documented as of this encounter
[2025-05-18 17:39] VITALS: BP 196/91; PULSE 53; RESP 16; TEMP 36.6; O2SAT 98; BMI 32.8
--- NOTE | 2025-05-18 18:04 | CRLHL7_ITS ---
For Patients: As a result of the Century Cures Act, medical imaging exams and procedure reports are released immediately into your electronic medical record. You may view this report before your referring provider. If you have questions, please contact your health care provider. INDICATION: Headaches. Facial pain. COMPARISON: None. TECHNIQUE: Noncontrast CT of the paranasal sinuses. FINDINGS: Bilateral mastoid sinuses are clear. No significant mucosal thickening or air-fluid levels. Ostiomeatal complexes are patent. Nasal septal deviation the right measured approximately 3 mm from midline. Nasal cavity is clear. Frontal sinuses and ethmoid air cells are clear. Sphenoid sinuses are clear. Bilateral sphenoid ostia patent. Visualized mastoid air cells are clear. No facial fractures. Mild degenerative changes at the bilateral temporomandibular joints Normal orbits bilaterally. IMPRESSION: 1. No facial fractures. 2. Visualized paranasal sinuses are clear. Please note that all CT scans at this facility use dose modulation, iterative reconstruction, and/or weight-based dosing when appropriate to reduce radiation dose to as low as reasonably achievable. Dictated by Antwan Martin MD @ 05/18/2025 7:13:30 PM (Electronically Signed)
--- NOTE | 2025-05-18 18:04 | CRLHL7_ITS ---
For Patients: As a result of the Century Cures Act, medical imaging exams and procedure reports are released immediately into your electronic medical record. You may view this report before your referring provider. If you have questions, please contact your health care provider. INDICATION: Headaches. Facial pain. COMPARISON: None. TECHNIQUE: Noncontrast CT head. FINDINGS: Hdnc-dq-dithaezz generalized volume loss. Patchy low-attenuation change within the white matter consistent with chronic deep white matter small ischemic changes. No acute intracranial hemorrhage, acute infarct, focal edema, mass effect, or fracture. No midline shift. No abnormal ventricular dilatation. Normal calvarium and skull base. Visualized paranasal sinuses and mastoid air cells are clear. Normal orbits bilaterally. IMPRESSION: 1. No acute intracranial abnormality. 2. Zreb-vf-zzszlfoi generalized volume loss. Chronic deep white matter small vessel ischemic changes Please note that all CT scans at this facility use dose modulation, iterative reconstruction, and/or weight-based dosing when appropriate to reduce radiation dose to as low as reasonably achievable. Dictated by Antwan Martin MD @ 05/18/2025 7:11:27 PM (Electronically Signed)
--- NOTE | 2025-05-18 18:29 | ED.GENADULT ---
HPI - General Adult General Chief complaint: Hypertension <Leah Rg MD - Last Filed: 05/18/25 19:46> Stated complaint: high BP and right eye pain <Leah Rg MD - Last Filed: 05/18/25 19:46> Time Seen by Provider: 05/18/25 17:32 <Leah Rg MD - Last Filed: 05/18/25 19:46> Source: patient <Leah Rg MD - Last Filed: 05/18/25 19:46> Mode of arrival: ambulatory <Leah Rg MD - Last Filed: 05/18/25 19:46> Limitations: no limitations <Leah Rg MD - Last Filed: 05/18/25 19:46> History of Present Illness HPI narrative: Patient is a 70-year-old female coming in today with several concerns. She was seen in the urgent care earlier today with pain behind her right eye and an elevated blood pressure so she was sent to the ED for further management. Patient states that she does not have a history of hypertension and does not take any blood pressure medications. Blood pressures always been well controlled. Today was quite elevated in it was 196/91 upon arrival to the ER. She states that since yesterday she has had pain behind her right eye. She denies pain with extraocular movement. She also complains of numbness and tingling around the eye into the anabaptism area and into the scalp. The area is not tender. She denies any systemic symptoms like fevers or chills. No nausea or vomiting. Patient has had shingles of the left side of the face in the same area sometime ago. She denies blurry vision or double vision. Past medical history significant for heart murmur, hysterectomy. She takes trazodone to help with sleep. Lives in [place]. Family history is positive for father had a stroke when he was 93. <Leah Rg MD - Last Filed: 05/18/25 19:46> Related Data Home medications: Home Medications ?Medication ?Instructions ?Recorded ?Confirmed trazodone 50 mg tablet 50 mg PO QDAY 05/18/25 05/18/25 <Leah Rg MD - Last Filed: 05/18/25 19:46> Allergies/adverse reactions: Allergies Allergy/AdvReac Type Severity Reaction Status Date / Time No Known Drug Allergies Allergy Verified 05/18/25 19:21 <Leah Rg MD - Last Filed: 05/18/25 19:46> Review of Systems Status of ROS: Reports: 10 or more systems reviewed and unremarkable except as noted in History and below <Leah Rg MD - Last Filed: 05/18/25 19:46> Exam Narrative: Exam Narrative: Well-nourished well-developed patient in no acute distress. Alert and oriented. Answers questions appropriately. Mood and affect are appropriate. Thoughts are goal oriented and rational. No tangential or magical thinking noted. Patient speaks in full sentences without needing to catch her breath. HEENT: Normocephalic atraumatic. Pupils are equally round reactive to light. Extraocular muscles are intact without pain. Conjunctivae are moist without any icterus noted. Moist mucous membranes. Posterior pharynx is normal. Cardiovascular: Heart is regular rate and rhythm S1 and S2 are present with a 3/6 systolic murmur. Lungs: Clear to auscultation bilaterally no wheezes rhonchi or rales are appreciated. Patient takes deep breaths without any discomfort. Abdomen: Soft and nontender nondistended with normal bowel sounds. Skin: Well perfused without any obvious rashes. <Leah Rg MD - Last Filed: 05/18/25 19:46> Const: Vital Signs, click to edit/add: Vital Signs - 24 hr 05/18/25 17:39 05/18/25 18:55 05/18/25 20:58 Temperature 97.9 F Pulse Rate 48 L 55 L Pulse Rate [Pulse Oximeter] 53 L Respiratory Rate 16 16 16 Blood Pressure 148/83 H 146/74 H Blood Pressure [Ri ght Upper Arm] 196/91 H Pulse Oximetry 98 98 95 Oxygen Delivery Me thod Room Air Room Air Room Air <Leah Rg MD - Last Filed: 05/18/25 19:46> Vital Signs, click to edit/add: Vital Signs - 24 hr 05/18/25 17:39 05/18/25 18:55 05/18/25 20:58 Temperature 97.9 F Pulse Rate 48 L 55 L Pulse Rate [Pulse Oximeter] 53 L Respiratory Rate 16 16 16 Blood Pressure 148/83 H 146/74 H Blood Pressure [Ri ght Upper Arm] 196/91 H Pulse Oximetry 98 98 95 Oxygen Delivery Me thod Room Air Room Air Room Air <Tova Abraham MD - Last Filed: 05/18/25 22:17> Course Course ED Course: Differential diagnosis is broad but includes shingles, stroke, migraine headache, intracranial mass, sinusitis, temporal arteritis. Discussed with , neurology at [facility], who recommends head CT, head neck CTA and MRI brain with and without contrast. Labs are normal. Inflammatory markers are normal. Head CT was normal. Sinus CT normal. Of note her blood pressure did come down 148/83. She does remain bradycardic with a pulse between the upper 40s and low 50s. Her EKG shows sinus bradycardia with a pulse of 47. At this time patient will proceed with head and neck CTA and MRI. Care will be transferred to the oncoming physician. <Leah Rg MD - Last Filed: 05/18/25 19:46> Vital Signs Vital signs: Initial Vital Signs Temperature 97.9 F 05/18/25 17:39 Temperature Source Temporal Artery Scan 05/18/25 17:39 Pulse Rate 53 L 05/18/25 17:39 Respiratory Rate 16 05/18/25 17:39 Blood Pressure 196/91 H 05/18/25 17:39 Blood Pressure Mean 126 H 05/18/25 17:39 Blood Pressure Position Sitting 05/18/25 17:39 Pulse Oximetry 98 05/18/25 17:39 Oxygen Delivery Method Room Air 05/18/25 17:39 Vital Signs Temperature 97.9 F 05/18/25 17:39 Pulse Rate 53 L 05/18/25 17:39 Respiratory Rate 16 05/18/25 17:39 Blood Pressure 196/91 H 05/18/25 17:39 Pulse Oximetry 98 05/18/25 17:39 Oxygen Delivery Method Room Air 05/18/25 17:39 Temperature 97.9 F 05/18/25 17:39 Pulse Rate 55 L 05/18/25 20:58 Respiratory Rate 16 05/18/25 20:58 Blood Pressure 146/74 H 05/18/25 20:58 Pulse Oximetry 95 05/18/25 20:58 Oxygen Delivery Method Room Air 05/18/25 20:58 <Leah Rg MD - Last Filed: 05/18/25 19:46> Initial Vital Signs Temperature 97.9 F 05/18/25 17:39 Temperature Source Temporal Artery Scan 05/18/25 17:39 Pulse Rate 53 L 05/18/25 17:39 Respiratory Rate 16 05/18/25 17:39 Blood Pressure 196/91 H 05/18/25 17:39 Blood Pressure Mean 126 H 05/18/25 17:39 Blood Pressure Position Sitting 05/18/25 17:39 Pulse Oximetry 98 05/18/25 17:39 Oxygen Delivery Method Room Air 05/18/25 17:39 Vital Signs Temperature 97.9 F 05/18/25 17:39 Pulse Rate 53 L 05/18/25 17:39 Respiratory Rate 16 05/18/25 17:39 Blood Pressure 196/91 H 05/18/25 17:39 Pulse Oximetry 98 05/18/25 17:39 Oxygen Delivery Method Room Air 05/18/25 17:39 Temperature 97.9 F 05/18/25 17:39 Pulse Rate 55 L 05/18/25 20:58 Respiratory Rate 16 05/18/25 20:58 Blood Pressure 146/74 H 05/18/25 20:58 Pulse Oximetry 95 05/18/25 20:58 Oxygen Delivery Method Room Air 05/18/25 20:58 <Tova Abraham MD - Last Filed: 05/18/25 22:17> Medical Decision Making MDM Narrative Medical decision making narrative: I was asked by my colleague Dr. Rg to review patient MRI and if negative for acute stroke or other findings to allow patient to discharge. MRI was negative for acute stroke and patient was discharged per Dr. Rg instructions. Patient was then discharged by nursing but had questions for me. Patient did ask what I thought her eye problem was. Given the fact that I did not know significant details of her visit I did state that I would need to sit down and fully reassess in order to give an appropriate opinion. She did tell me that she came in because of elevated blood pressure in worries regarding shingles which she had had on the left but never on the right. Again I stated that I would be happy to offer my opinion but would need more information. She has no visual changes. She is feeling better, in fact declined morphine that Dr. Rg had suggested. At this time she declines further evaluation. She did state that she would go to urgent care if her pain return. I have actually suggested Ophthalmology as her tests were normal here tonight. Again, did offer to do an exam of the eye and to further diving into her symptoms but she declines wanting to go home. Return to the emergency room for worsening symptoms. <Tova Abraham MD - Last Filed: 05/18/25 22:17> Lab Data Labs: Lab Results 05/18/25 Range/Units 18:16 WBC 6.59 (4.50-11.00) K/uL RBC 4.40 (4.00-5.20) m/uL Hgb 13.5 (12.0-16.0) gm/dL Hct 40.0 (33.0-51.0) % MCV 91 (80-100) fL MCH 31 (26-34) pg MCHC 34 (32-36) gm/dL RDW Coeff of Ramos 13.4 (11.5-15.5) % Plt Count 227 (140-440) K/uL Neut % (Auto) 57.7 (42.0-72.0) % Lymph % (Auto) 32.5 (20-44) % [place] % (Auto) 6.8 (0.0-11.0) % Eos % (Auto) 2.3 (0.0-7.0) % Baso % (Auto) 0.5 (0.0-3.0) % Neut # (Auto) 3.81 (1.7-7.0) K/uL Lymph # (Auto) 2.14 (0.90-2.90) K/uL [place] # (Auto) 0.40 (0.00-0.90) K/UL Eos # (Auto) 0.15 (0.00-0.50) K/uL Baso # (Auto) 0.03 (0.00-0.30) K/uL Abs Immat Gran (auto) 0.01 (0.00-0.30) K/uL Imm/Tot Granulo (auto) 0.2 % ESR 11 (2-20) mm/hr Sodium 134 L (135-149) mmol/L Potassium 4.2 (3.6-5.1) mmol/L Chloride 102 (96-114) mmol/L Carbon Dioxide 27 (20-32) mmol/L Anion Gap 5 L (7-15) mEq/L BUN 18 (7-30) mg/dL Creatinine 0.7 (0.5-1.5) mg/dL Estimated Creat Clear 37.06 Estimated GFR 92 ml/min Glucose 95 (60-115) mg/dL Calcium 9.4 (8.4-10.6) mg/dL Total Bilirubin 0.6 (0.1-1.5) mg/dL Direct Bilirubin 0.3 (0.0-0.5) mg/dL AST 36 H (12-35) U/L ALT 18 (4-35) U/L Alkaline Phosphatase 58 (40-150) U/L C-Reactive Protein < 0.5 L (0.5-1.0) mg/dL Total Protein 8.1 (6.0-8.3) g/dL Albumin 4.6 (3.3-5.0) g/dL <Leah Rg MD - Last Filed: 05/18/25 19:46> Lab Results 05/18/25 Range/Units 18:16 WBC 6.59 (4.50-11.00) K/uL RBC 4.40 (4.00-5.20) m/uL Hgb 13.5 (12.0-16.0) gm/dL Hct 40.0 (33.0-51.0) % MCV 91 (80-100) fL MCH 31 (26-34) pg MCHC 34 (32-36) gm/dL RDW Coeff of Ramos 13.4 (11.5-15.5) % Plt Count 227 (140-440) K/uL Neut % (Auto) 57.7 (42.0-72.0) % Lymph % (Auto) 32.5 (20-44) % [place] % (Auto) 6.8 (0.0-11.0) % Eos % (Auto) 2.3 (0.0-7.0) % Baso % (Auto) 0.5 (0.0-3.0) % Neut # (Auto) 3.81 (1.7-7.0) K/uL Lymph # (Auto) 2.14 (0.90-2.90) K/uL [place] # (Auto) 0.40 (0.00-0.90) K/UL Eos # (Auto) 0.15 (0.00-0.50) K/uL Baso # (Auto) 0.03 (0.00-0.30) K/uL Abs Immat Gran (auto) 0.01 (0.00-0.30) K/uL Imm/Tot Granulo (auto) 0.2 % ESR 11 (2-20) mm/hr Sodium 134 L (135-149) mmol/L Potassium 4.2 (3.6-5.1) mmol/L Chloride 102 (96-114) mmol/L Carbon Dioxide 27 (20-32) mmol/L Anion Gap 5 L (7-15) mEq/L BUN 18 (7-30) mg/dL Creatinine 0.7 (0.5-1.5) mg/dL Estimated Creat Clear 37.06 Estimated GFR 92 ml/min Glucose 95 (60-115) mg/dL Calcium 9.4 (8.4-10.6) mg/dL Total Bilirubin 0.6 (0.1-1.5) mg/dL Direct Bilirubin 0.3 (0.0-0.5) mg/dL AST 36 H (12-35) U/L ALT 18 (4-35) U/L Alkaline Phosphatase 58 (40-150) U/L C-Reactive Protein < 0.5 L (0.5-1.0) mg/dL Total Protein 8.1 (6.0-8.3) g/dL Albumin 4.6 (3.3-5.0) g/dL <Tova Abraham MD - Last Filed: 05/18/25 22:17> Imaging Data CT scan - head: Attestation: I have reviewed the pertinent imaging results. <Leah Rg MD - Last Filed: 05/18/25 19:46> Radiologist's impression: TECHNIQUE: Noncontrast CT head. FINDINGS: Obyu-zn-rilnyyjr generalized volume loss. Patchy low-attenuation change within the white matter consistent with chronic deep white matter small ischemic changes. No acute intracranial hemorrhage, acute infarct, focal edema, mass effect, or fracture. No midline shift. No abnormal ventricular dilatation. Normal calvarium and skull base. Visualized paranasal sinuses and mastoid air cells are clear. Normal orbits bilaterally. IMPRESSION: 1. No acute intracranial abnormality. 2. Hgew-fb-gbrnrulp generalized volume loss. Chronic deep white matter small vessel ischemic changes <Leah Rg MD - Last Filed: 05/18/25 19:46> CT sinuses: Attestation: I have reviewed the pertinent imaging results. <Leah Rg MD - Last Filed: 05/18/25 19:46> Radiologist's impression: TECHNIQUE: Noncontrast CT of the paranasal sinuses. FINDINGS: Bilateral mastoid sinuses are clear. No significant mucosal thickening or air-fluid levels. Ostiomeatal complexes are patent. Nasal septal deviation the right measured approximately 3 mm from midline. Nasal cavity is clear. Frontal sinuses and ethmoid air cells are clear. Sphenoid sinuses are clear. Bilateral sphenoid ostia patent. Visualized mastoid air cells are clear. No facial fractures. Mild degenerative changes at the bilateral temporomandibular joints Normal orbits bilaterally. IMPRESSION: 1. No facial fractures. 2. Visualized paranasal sinuses are clear. <Leah Rg MD - Last Filed: 05/18/25 19:46> MR Brain: Attestation: I have reviewed the pertinent imaging results. <Tova Abraham MD - Last Filed: 05/18/25 22:17> Radiologist's impression: Mild generalized volume loss. Scattered patchy and confluent T2/FLAIR signal hyperintensity within the white matter of both cerebral hemispheres are nonspecific and may represent chronic deep white matter small vessel ischemic changes. No intracranial hemorrhage. No abnormal ventricular dilatation. Intracranial vascular flow voids are preserved. No mass effect. No midline shift. No restricted diffusion to suggest acute ischemia. No abnormal enhancement or enhancing lesions within the brain parenchyma. Bilateral orbits are unremarkable. Normal appearing sella. Visualized paranasal sinuses and mastoid air cells are unremarkable. IMPRESSION: 1. No acute intracranial abnormality 2. Mild generalized cerebral volume loss. Chronic deep white matter small vessel ischemic changes 3. No abnormal enhancement or enhancing lesions <Tova Abraham MD - Last Filed: 05/18/25 22:17> Discharge Plan Discharge Clinical Impression: Headache <Leah Rg MD - Last Filed: 05/18/25 19:46> Patient Disposition: Home, Self-Care <Leah Rg MD - Last Filed: 05/18/25 19:46> Condition: Stable <Leah Rg MD - Last Filed: 05/18/25 19:46> Additional Instructions: Follow up with your primary care provider this week. Return to the ER if you develop worsening symptoms or if you develop a rash. <Leah Rg MD - Last Filed: 05/18/25 19:46> Prescriptions: No Action trazodone 50 mg tablet 50 mg PO QDAY <Leah Rg MD - Last Filed: 05/18/25 19:46> Follow Up/Referrals: Provider,Not a Local [Primary Care Provider, Family Practice] <Leah Rg MD - Last Filed: 05/18/25 19:46> Stand Alone Forms: [employer] Info Instructions <Leah Rg MD - Last Filed: 05/18/25 19:46>
[2025-05-18 18:30] LABS: Hematocrit* 40.0 % (33.0-51.0); Hemoglobin* 13.5 gm/dL (12.0-16.0); Immature Granulocytes Abs Auto 0.01 K/uL (0.00-0.30); Immature Granulocytes Pct Auto 0.2 %; Lymphocytes Absolute Auto 2.14 K/uL (0.90-2.90); Mean Corpuscular HGB Conc 34 gm/dL (32-36); Mean Corpuscular Hemoglobin 31 pg (26-34); Mean Corpuscular Volume 91 fL (80-100); RDW Coefficient of Variation % 13.4 % (11.5-15.5); Red Blood Count* 4.40 m/uL (4.00-5.20); White Blood Count* 6.59 K/uL (4.50-11.00)
[2025-05-18 18:34] LABS: Slide Review Reflex No
[2025-05-18 18:42] LABS: Albumin* 4.6 g/dL (3.3-5.0); Chloride* 102 mmol/L (96-114)
[2025-05-18 18:43] LABS: Potassium* 4.2 mmol/L (3.6-5.1); Sodium* 134 mmol/L (135-149)
[2025-05-18 18:45] LABS: Blood Urea Nitrogen* 18 mg/dL (7-30); Creatinine* 0.7 mg/dL (0.5-1.5); Est. Creatinine Clearance* 37.06; Estimated Glomerular Filt Rate 92 ml/min
[2025-05-18 18:46] LABS: Alanine Aminotransferase* 18 U/L (4-35); Alkaline Phosphatase* 58 U/L (40-150); Anion Gap 5 mEq/L (7-15); Aspartate Amino Transferase* 36 U/L (12-35); Bilirubin Direct* 0.3 mg/dL (0.0-0.5); Bilirubin Total* 0.6 mg/dL (0.1-1.5); Calcium* 9.4 mg/dL (8.4-10.6); Carbon Dioxide* 27 mmol/L (20-32); Glucose* 95 mg/dL (60-115); Total Protein* 8.1 g/dL (6.0-8.3)
[2025-05-18 18:55] VITALS: BP 148/83; PULSE 48; RESP 16; O2SAT 98
--- NOTE | 2025-05-18 19:01 | CRLHL7_ITS ---
For Patients: As a result of the Century Cures Act, medical imaging exams and procedure reports are released immediately into your electronic medical record. You may view this report before your referring provider. If you have questions, please contact your health care provider. INDICATION: Acute stroke, right facial numbness. TECHNIQUE: CTA head using intravenous contrast with bolus tracking, 3D angiographic rendering using maximum intensity projection (MIP) and images permanently archived. CTA neck using intravenous contrast with bolus tracking, 3D angiographic rendering using maximum intensity projection (MIP) and images permanently archived. FINDINGS: CTA head: There is normal opacification of the intracranial vasculature. There is no large vessel occlusion or significant intracranial stenosis. No aneurysm is identified. CTA neck: There is no significant carotid artery stenosis or dissection. There is no significant vertebral artery stenosis or dissection. IMPRESSION: No acute intracranial abnormality at CTA. No significant carotid or vertebral artery stenosis or dissection. Please note that all CT scans at this facility use dose modulation, iterative reconstruction, and/or weight-based dosing when appropriate to reduce radiation dose to as low as reasonably achievable. Dictated by Pierce Nielsen MD @ 05/19/2025 1:30:56 PM (Electronically Signed)
[2025-05-18 19:12] LABS: Erythrocyte SedimentationRate* 11 mm/hr (2-20)
--- NOTE | 2025-05-18 19:20 | CRLHL7_ITS ---
For Patients: As a result of the Century Cures Act, medical imaging exams and procedure reports are released immediately into your electronic medical record. You may view this report before your referring provider. If you have questions, please contact your health care provider. INDICATION: Facial numbness. COMPARISON: CT from earlier today. TECHNIQUE: Multiplanar T1, T2, FLAIR and diffusion-weighted imaging. Post gadolinium T1 weighted sequences. Gadolinium 15 cc IV. FINDINGS: Mild generalized volume loss. Scattered patchy and confluent T2/FLAIR signal hyperintensity within the white matter of both cerebral hemispheres are nonspecific and may represent chronic deep white matter small vessel ischemic changes. No intracranial hemorrhage. No abnormal ventricular dilatation. Intracranial vascular flow voids are preserved. No mass effect. No midline shift. No restricted diffusion to suggest acute ischemia. No abnormal enhancement or enhancing lesions within the brain parenchyma. Bilateral orbits are unremarkable. Normal appearing sella. Visualized paranasal sinuses and mastoid air cells are unremarkable. IMPRESSION: 1. No acute intracranial abnormality 2. Mild generalized cerebral volume loss. Chronic deep white matter small vessel ischemic changes 3. No abnormal enhancement or enhancing lesions Dictated by Antwan Martin MD @ 05/18/2025 8:34:38 PM (Electronically Signed)
[2025-05-18 20:58] VITALS: BP 146/74; PULSE 55; RESP 16; O2SAT 95
== END 2025-05-18 21:17 | disposition home or self-care (01) ==
PROVIDERS: Family Medicine; Emergency Provider Family Medicine
DX: R51.9 Headache, unspecified (principal)
CPT/HCPCS: 36415; 70450; 70486; 70496; 70498; 70553; 80048; 80076; 85025; 85651; 86140; 93005; 99284; 99285; A9575; Q9967